=== PATIENT | male | born 1945 | race Caucasian/White ===

== ENCOUNTER 2019-03-12 13:26 | Emergency (ER) | payer MEDICARE, BC ==
--- NOTE | 2019-03-12 14:06 | EDM.PDOC ---
ED HPI GENERAL MEDICAL PROBLEM - General Chief Complaint: Lower Extremity Injury/Pain Stated Complaint: FELL OFF LADDER Time Seen by Provider: 03/12/19 14:05 Source of Information: Reports: Patient History Limitations: Reports: No Limitations - History of Present Illness INITIAL COMMENTS - FREE TEXT/NARRATIVE: pt [place] on [place] and he fell and landed on hisrt heel. He is not able to wt bear on the heel. Onset: Today, Sudden Duration: Hour(s): Location: Reports: Lower Extremity, Right Associated Symptoms: Reports: No Other Symptoms - Related Data Allergies Allergy/AdvReac Type Severity Reaction Status Date / Time chloraprep Allergy Rash Uncoded 04/23/13 14:40 Home Meds: Home Meds Aspirin [Adult Low Dose Aspirin EC] 81 mg PO DAILY 04/23/13 [History] Metoprolol Tartrate 50 mg PO DAILY 04/23/13 [History] [place]-3 Fatty Acids [[place]-3] 1,000 mg PO DAILY 04/23/13 [History] Pantoprazole [Protonix] 40 mg PO DAILY 04/23/13 [History] Simvastatin 20 mg PO DAILY 04/23/13 [History] allopurinoL [Allopurinol] 300 mg PO DAILY 04/23/13 [History] Past Medical History HEENT History: Reports: Cataract Respiratory History: Reports: Sleep Apnea Gastrointestinal History: Reports: Colon Polyp Genitourinary History: Reports: Prostate Disorder Other Genitourinary History: prostate CA Musculoskeletal History: Reports: Gout Psychiatric History: Reports: None Hematologic History: Reports: None Oncologic (Cancer) History: Reports: Prostate - Past Surgical History HEENT Surgical History: Reports: Cataract Surgery, Tonsillectomy GI Surgical History: Reports: Colonoscopy, EGD, Hernia, Inguinal Male Surgical History: Reports: Prostatectomy Endocrine Surgical History: Reports: None Neurological Surgical History: Reports: None Musculoskeletal Surgical History: Reports: None Oncologic Surgical History: Reports: None Dermatological Surgical History: Reports: None Social & Family History - Tobacco Use Smoking Status *Q: Never Smoker Second Hand Smoke Exposure: No - Caffeine Use Caffeine Use: Reports: Coffee, Soda, Tea - Recreational Drug Use Recreational Drug Use: No Review of Systems - Review of Systems Review Of Systems: See Below Constitutional: Reports: No Symptoms Eyes: Reports: No Symptoms Ears: Reports: No Symptoms Nose: Reports: No Symptoms Mouth/Throat: Reports: No Symptoms Respiratory: Reports: No Symptoms Cardiovascular: Reports: No Symptoms GI/Abdominal: Reports: No Symptoms Genitourinary: Reports: No Symptoms Musculoskeletal: Reports: Other (pain in rt heel.) ED EXAM, GENERAL - Physical Exam Exam: See Below Free Text/Narrative:: pt arrived with rt heel pain He fell about 4 feet off of the ladder. Exam Limited By: No Limitations General Appearance: Alert, Anxious, Mild Distress Ears: Normal TMs Nose: Normal Inspection Throat/Mouth: Normal Inspection Head: Atraumatic Neck: Normal Inspection Respiratory/Chest: No Respiratory Distress Cardiovascular: Regular Rate, Rhythm Extremities: Other (pt has swelling and severe pain in rt heel. ) Course - Vital Signs Last Recorded V/S: Last Vital Signs Temp 35.3 C 03/12/19 14:09 Pulse 64 03/12/19 14:09 Resp 20 03/12/19 14:09 BP 113/94 H 03/12/19 14:09 Pulse Ox 98 03/12/19 14:09 - Re-Assessments/Exams Free Text/Narrative Re-Assessment/Exam: 03/12/19 17:20 plain films did reveal a possible but not definitive fracture. A cat scan was obtained which showed a commuited fracture of the rt calcaneous. Departure - Departure Time of Disposition: 17:09 Disposition: Home, Self-Care 01 Condition: Fair Clinical Impression: Fracture, calcaneus closed - Discharge Information Instructions: Cast or Splint Care, Adult Referrals: Yaya Mac MD [Primary Care Provider] - Forms: ED Department Discharge Care Plan Goals: crutches, no wt bearing, appt with Dr Lind tomorrow. Elevat, cool pack to the heel, norco 5/325 q6h prn for severe pain. Sepsis Event Note - Focused Exam Vital Signs: Vital Signs Temp Pulse Resp BP Pulse Ox 03/12/19 14:09 35.3 C 64 20 113/94 H 98 Date Exam was Performed: 03/12/19 Time Exam was Performed: 17:14
--- NOTE | 2019-03-12 15:08 | CRLCR ---
Indication: Injury. Heel pain Technique: Two views of the right calcaneus Comparison: None available Findings/Impression: Bones: A linear ossific density along the medial aspect of the distal calcaneus concerning for a fracture fragment, with a tiny cortical lucency more posteriorly. Few curvilinear lucencies within the calcaneus do not clearly extend to the overlying cortices. If indicated, correlate with CT. No dislocation. A posterior calcaneal enthesophyte. Joint spaces: Unremarkable. Soft tissues: Possible small fluid in the retrocalcaneal bursa. Dictated by Enrique Olivier MD @ 03/12/2019 3:05:30 PM Dictated by: Enrique Olivier MD @ 03/12/2019 15:05:36 (Electronically Signed)
--- NOTE | 2019-03-12 15:10 | CRLCR ---
Indication: Injury. Pain Technique: Three views of the right ankle Comparison: None available Findings/Impression: Bones: Curvilinear lucencies within the calcaneal body could represent nondisplaced fractures, however not clearly extending to the overlying cortices. If indicated, correlate with CT. No dislocation. Joint spaces: Unremarkable. Soft tissues: Mild lateral soft tissue swelling. Dictated by Enrique Olivier MD @ 03/12/2019 3:07:51 PM Dictated by: Enrique Olivier MD @ 03/12/2019 15:07:58 (Electronically Signed)
--- NOTE | 2019-03-12 16:53 | CRLCT ---
Indication: Heel pain. Possible calcaneal fracture calcaneal films. Comparison : Plain films of the calcaneus and ankle from today. Technique : Noncontrast CT examination of the ankle and foot is performed using spiral technique. 1 millimeter thick sagittal, axial, and coronal images are obtained. Please note that all CT scans at this facility use dose modulation, iterative reconstruction, and/or weight-based dosing when appropriate to reduce radiation dose to as low as reasonably achievable. Findings: There is an extensive, comminuted, crush fracture of the calcaneus with flattening of Boehler`s angle to 17 degrees. Multiple vertical and oblique fracture lines are seen passing through the body and anterior portion of the calcaneus, involving the posterior subtalar joint, but sparing the anterior subtalar joint and sustentaculum nya. Interestingly, these fracture lines are not evident even in retrospect on the previous plain films. There is no sign of additional fracture elsewhere in the ankle or foot. The ankle mortise is intact, with no sign of fracture of the talus. There is evidence of previous soft tissue injury involving the lateral malleolus. There is no sign of any fractures of the tarsal bones or of the forefoot. 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 Moderate hammertoe deformities of all of the toes. Small posterior calcaneal spur. Moderate soft tissue swelling of the anterior lateral ankle with mild ankle joint effusion. Impression: Extensive, comminuted, crush fracture of the mid and anterior calcaneus, involving the posterior subtalar articulations and resulting and moderate flattening of Boehler`s angle. Moderate medial ankle soft tissue swelling and mild ankle joint effusion, without fracture of the ankle itself. No sign of any additional fracture elsewhere in the foot. Please note that all CT scans at this facility use dose modulation, iterative reconstruction, and/or weight-based dosing when appropriate to reduce radiation dose to as low as reasonably achievable. Dictated by Raza Dubose MD @ Mar 12 2019 4:39PM Signed by Dr. Raza Dubose @ Mar 12 2019 4:52PM
== END 2019-03-12 17:43 | disposition home or self-care (01) ==
LOC: JP.ED 13:26
DX: S92.021A Displaced fracture of anterior process of right calcaneus, initial encounter for closed fracture (principal); S92.014A Nondisplaced fracture of body of right calcaneus, initial encounter for closed fracture; M10.9 Gout, unspecified; Z88.8 Allergy status to other drugs, medicaments and biological substances; Z79.82 Long term (current) use of aspirin; Z79.899 Other long term (current) drug therapy; Z91.048 Other nonmedicinal substance allergy status; W11.XXXA Fall on and from ladder, initial encounter
CPT/HCPCS: 73610-RT; 73650-RT; 73700-RT; 99283-25

== ENCOUNTER 2019-10-29 19:17 | Emergency (ER) | payer MEDICARE ==
--- NOTE | 2019-10-29 20:32 | EDM.PDOC ---
ED HPI GENERAL MEDICAL PROBLEM - General Chief Complaint: General Stated Complaint: WEAKNESS Time Seen by Provider: 10/29/19 20:18 Source of Information: Reports: Patient, Family, RN, RN Notes Reviewed, Significant Other History Limitations: Reports: No Limitations - History of Present Illness INITIAL COMMENTS - FREE TEXT/NARRATIVE: Pt here via private vehicle with spouse with 2 days progressive weakness in BLLE. Pt did feel weak yesterday while out in [place] and again today at supper. Did have a drink yesterday and again with supper. Did have a pre-syncopal event and slid self to floor after feeling weak., Pt has a remote heart history. Denies fever, night sweats, n/v, or exposure to sick people or recent travel. Denies pain in any extremity. Pt is lying on bed in no acute distress and able to answer questions appropriately in full sentences. Spouse is bedside. Onset: Today Onset Date: 10/29/19 Onset Time: 17:00 Duration: Hour(s): Location: Reports: Lower Extremity, Left (Weakness), Lower Extremity, Right Severity: Moderate - Related Data Allergies Allergy/AdvReac Type Severity Reaction Status Date / Time chloraprep Allergy Rash Uncoded 10/29/19 19:48 Home Meds: Home Meds Aspirin [Adult Low Dose Aspirin EC] 2 tab PO BEDTIME 04/23/13 [History] Metoprolol Tartrate 50 mg PO BID 04/23/13 [History] [place]-3 Fatty Acids [[place]-3] 1,000 mg PO DAILY 04/23/13 [History] Pantoprazole [Protonix] 40 mg PO DAILY 04/23/13 [History] Simvastatin 20 mg PO DAILY 04/23/13 [History] allopurinoL [Allopurinol] 300 mg PO DAILY 04/23/13 [History] Rosuvastatin Calcium 10 mg PO DAILY 10/29/19 [History] Past Medical History HEENT History: Reports: Cataract, Impaired Vision Cardiovascular History: Reports: None, Arrhythmia, CAD, High Cholesterol, Hypertension Respiratory History: Reports: Sleep Apnea Gastrointestinal History: Reports: Colon Polyp, GERD Genitourinary History: Reports: Prostate Disorder Other Genitourinary History: prostate CA Musculoskeletal History: Reports: Fracture, Gout, Neck Pain, Chronic, Other (See Below) Other Musculoskeletal History: right heel FX 03/12/19 Neurological History: Reports: None Psychiatric History: Reports: None Endocrine/Metabolic History: Reports: None Hematologic History: Reports: None Immunologic History: Reports: None Oncologic (Cancer) History: Reports: Prostate Dermatologic History: Reports: None - Infectious Disease History Infectious Disease History: Reports: Chicken Pox, Measles, Mumps, Scarlet Fever - Past Surgical History Head Surgeries/Procedures: Reports: None HEENT Surgical History: Reports: Adenoidectomy, Cataract Surgery, Tonsillectomy GI Surgical History: Reports: Colonoscopy, EGD, Hernia, Inguinal, Polypectomy Male Surgical History: Reports: Prostatectomy Endocrine Surgical History: Reports: None Neurological Surgical History: Reports: None Musculoskeletal Surgical History: Reports: Carpal Tunnel Oncologic Surgical History: Reports: None Dermatological Surgical History: Reports: None Social & Family History - Tobacco Use Smoking Status *Q: Never Smoker - Caffeine Use Caffeine Use: Reports: Coffee - Alcohol Use Days Per Week of Alcohol Use: 7 Number of Drinks Per Day: 1 Total Drinks Per Week: 7 - Recreational Drug Use Recreational Drug Use: No ED ROS GENERAL - Review of Systems Review Of Systems: See Below Constitutional: Reports: No Symptoms HEENT: Reports: No Symptoms Respiratory: Reports: No Symptoms Cardiovascular: Reports: No Symptoms Endocrine: Reports: No Symptoms GI/Abdominal: Reports: No Symptoms : Reports: No Symptoms Musculoskeletal: Reports: Other (BLLE weakness) Skin: Reports: No Symptoms Neurological: Reports: Weakness Psychiatric: Reports: No Symptoms Hematologic/Lymphatic: Reports: No Symptoms Immunologic: Reports: No Symptoms ED EXAM, GENERAL - Physical Exam Exam: See Below Exam Limited By: No Limitations General Appearance: Alert, WD/WN, No Apparent Distress Eye Exam: Bilateral Eye: PERRL Head: Normocephalic Neck: Normal Inspection, Supple Respiratory/Chest: No Respiratory Distress, Lungs Clear, Normal Breath Sounds Cardiovascular: Normal Peripheral Pulses, Regular Rate, Rhythm, No Edema Peripheral Pulses: 2+: Radial (L), Radial (R), Dorsalis Pedis (L), Dorsalis Ped is (R) GI/Abdominal: Normal Bowel Sounds, Soft, Non-Tender (Male) Exam: No Hernia, Deferred Rectal (Males) Exam: Deferred Extremities: Normal Capillary Refill Neurological: Alert, Oriented, CN II-XII Intact, Normal Cognition Psychiatric: Normal Affect, Normal Mood Skin Exam: Warm, Dry, Intact Lymphatic: No Adenopathy Course - Vital Signs Last Recorded V/S: Last Vital Signs Temp 35.8 C L 10/29/19 19:52 Pulse 70 10/29/19 19:52 Resp 16 10/29/19 19:52 BP 146/82 H 10/29/19 19:52 Pulse Ox 97 10/29/19 19:52 - Orders/Labs/Meds Orders: Active Orders 24 hr Category Date Time Status EKG Documentation Completion [RC] ASDIRECTED Care 10/29/19 20:25 Active Peripheral IV Care [RC] . DIRECTED Care 10/29/19 20:37 Active Chest 2V [CR] Stat Exams 10/29/19 20:25 Taken Sodium Chloride 0.9% [Saline Flush] Med 10/29/19 20:37 Active 10 ml FLUSH ASDIRECTED PRN Peripheral IV Insertion Adult [OM.PC] Routine Oth 10/29/19 20:37 Ordered EKG 12 Lead [EK] Routine Ther 10/29/19 20:25 Ordered Medication Orders Sodium Chloride (Saline Flush) 10 ml FLUSH ASDIRECTED PRN PRN Reason: Keep Vein Open Last Admin: 10/29/19 20:58 Dose: 10 ml Documented by: JAMAAL Labs: Laboratory Tests 10/29/19 10/29/19 10/29/19 Range/Units 20:36 20:39 20:39 WBC 7.2 (4.5-11.0) K/uL RBC 4.79 (4.30-5.90) M/uL Hgb 14.2 (12.0-15.0) g/dL Hct 44.8 (40.0-54.0) % MCV 94 (80-98) fL MCH 30 (27-31) pg MCHC 32 (32-36) % Plt Count 206 (150-400) K/uL Neut % (Auto) 67 H (36-66) % Lymph % (Auto) 16 L (24-44) % [place] % (Auto) 11 H (2-6) % Eos % (Auto) 5 H (2-4) % Baso % (Auto) 1 (0-1) % Sodium (140-148) mmol/L Potassium (3.6-5.2) mmol/L Chloride (100-108) mmol/L Carbon Dioxide (21-32) mmol/L Anion Gap (5.0-14.0) mmol/L BUN (7-18) mg/dL Creatinine (0.8-1.3) mg/dL Est Cr Clr Drug Dosing mL/min Estimated GFR (MDRD) (>60) Glucose (74-106) mg/dL POC Glucose 138 H (74-106) MG/DL Calcium (8.5-10.1) mg/dL Total Bilirubin (0.2-1.0) mg/dL AST (15-37) U/L ALT (12-78) U/L Alkaline Phosphatase (46-116) U/L Troponin I (0.000-0.056) ng/mL Total Protein (6.4-8.2) g/dL Albumin (3.4-5.0) g/dL Globulin (2.3-3.5) g/dL Albumin/Globulin Ratio (1.2-2.2) Urine Color Yellow (YELLOW) Urine Appearance Clear (CLEAR) Urine pH 5.5 (5.0-8.0) Ur Specific [place] >= 1.030 (1.008-1.030) Urine Protein Negative (NEGATIVE) mg/dL Urine Glucose (UA) Negative (NEGATIVE) mg/dL Urine Ketones Negative (NEGATIVE) mg/dL Urine Occult Blood Trace-intact H (NEGATIVE) Urine Nitrite Negative (NEGATIVE) Urine Bilirubin Negative (NEGATIVE) Urine Urobilinogen 0.2 (0.2-1.0) EU/dL Ur Leukocyte Esterase Negative (NEGATIVE) 10/29/19 Range/Units 20:39 WBC (4.5-11.0) K/uL RBC (4.30-5.90) M/uL Hgb (12.0-15.0) g/dL Hct (40.0-54.0) % MCV (80-98) fL MCH (27-31) pg MCHC (32-36) % Plt Count (150-400) K/uL Neut % (Auto) (36-66) % Lymph % (Auto) (24-44) % [place] % (Auto) (2-6) % Eos % (Auto) (2-4) % Baso % (Auto) (0-1) % Sodium 143 (140-148) mmol/L Potassium 4.3 (3.6-5.2) mmol/L Chloride 108 (100-108) mmol/L Carbon Dioxide 24 (21-32) mmol/L Anion Gap 11.1 (5.0-14.0) mmol/L BUN 23 H (7-18) mg/dL Creatinine 1.5 H (0.8-1.3) mg/dL Est Cr Clr Drug Dosing 43.86 mL/min Estimated GFR (MDRD) 46 L (>60) Glucose 143 H (74-106) mg/dL POC Glucose (74-106) MG/DL Calcium 8.9 (8.5-10.1) mg/dL Total Bilirubin 0.4 (0.2-1.0) mg/dL AST 25 (15-37) U/L ALT 30 (12-78) U/L Alkaline Phosphatase 72 (46-116) U/L Troponin I < 0.017 (0.000-0.056) ng/mL Total Protein 6.5 (6.4-8.2) g/dL Albumin 3.5 (3.4-5.0) g/dL Globulin 3.0 (2.3-3.5) g/dL Albumin/Globulin Ratio 1.2 (1.2-2.2) Urine Color (YELLOW) Urine Appearance (CLEAR) Urine pH (5.0-8.0) Ur Specific [place] (1.008-1.030) Urine Protein (NEGATIVE) mg/dL Urine Glucose (UA) (NEGATIVE) mg/dL Urine Ketones (NEGATIVE) mg/dL Urine Occult Blood (NEGATIVE) Urine Nitrite (NEGATIVE) Urine Bilirubin (NEGATIVE) Urine Urobilinogen (0.2-1.0) EU/dL Ur Leukocyte Esterase (NEGATIVE) Meds: Medications Generic Name Dose Route Start Last Admin Trade Name Freq PRN Reason Stop Dose Admin Sodium Chloride 10 ml 10/29/19 20:37 10/29/19 20:58 Saline Flush FLUSH 10 ml ASDIRECTED PRN Administration Keep Vein Open Discontinued Medications Generic Name Dose Route Start Last Admin Trade Name Freq PRN Reason Stop Dose Admin Sodium Chloride 1,000 mls @ 999 mls/hr 10/29/19 20:36 10/29/19 20:56 Normal Saline IV 10/29/19 21:36 999 mls/hr .BOLUS ONE Administration - Re-Assessments/Exams Free Text/Narrative Re-Assessment/Exam: 10/29/19 20:35 Examined pt. Labs, diagnostics, and UA Will bolus with NS L 10/29/19 21:52 All labs, diagnostics, and ua negative. Bolus complete. Pt feels much better Departure - Departure Time of Disposition: 21:53 Disposition: DC/Tfer to [id number] Condition: Good Clinical Impression: Weakness generalized, Dehydration - Discharge Information *PRESCRIPTION DRUG MONITORING PROGRAM REVIEWED*: Not Applicable *COPY OF PRESCRIPTION DRUG MONITORING REPORT IN PATIENT NIDIA: Not Applicable Instructions: Weakness, [id number], Dehydration, Adult Referrals: Aj Prakash MD [Primary Care Provider] - Forms: ED Department Discharge Care Plan Goals: Please get plenty of rest. Stay out of the heat. Be sure to drink and eat as tolerated. Your labs, diagnostics, and urine were good. If you feel your symptoms are not improving, please contact your primary provider or seek medical attention as soon as possible. Sepsis Event Note (ED) - Evaluation Sepsis Screening Result: No Definite Risk - Focused Exam Vital Signs: Vital Signs Temp Pulse Resp BP Pulse Ox 10/29/19 19:52 35.8 C L 70 16 146/82 H 97 10/29/19 19:37 35.8 C L 70 16 146/82 H 97 - Problem List & Annotations (1) Weakness generalized SNOMED Code(s): 88776114 Code(s): R53.1 - WEAKNESS Status: Acute Priority: High Current Visit: Yes - Problem List Review Problem List Initiated/Reviewed/Updated: Yes - My Orders Last 24 Hours: My Active Orders 10/29/19 20:25 EKG Documentation Completion [RC] ASDIRECTED Chest 2V [CR] Stat EKG 12 Lead [EK] Routine 10/29/19 20:37 Peripheral IV Care [RC] . DIRECTED Sodium Chloride 0.9% [Saline Flush] 10 ml FLUSH ASDIRECTED PRN Peripheral IV Insertion Adult [OM.PC] Routine - Assessment/Plan Last 24 Hours: My Active Orders 10/29/19 20:25 EKG Documentation Completion [RC] ASDIRECTED Chest 2V [CR] Stat EKG 12 Lead [EK] Routine 10/29/19 20:37 Peripheral IV Care [RC] . DIRECTED Sodium Chloride 0.9% [Saline Flush] 10 ml FLUSH ASDIRECTED PRN Peripheral IV Insertion Adult [OM.PC] Routine Plan: Please get plenty of rest. Stay out of the heat. Be sure to drink and eat as tolerated. Your labs, diagnostics, and urine were good. If you feel your symptoms are not improving, please contact your primary provider or seek medical attention as soon as possible
[2019-10-29] MEDS ORDERED: Sodium Chloride 0.9% 1,000 ML IV ONE (20:36)
[2019-10-29] MEDS ORDERED: Sodium Chloride 0.9% 10 ML Syringe FLUSH PRN (20:37)
--- NOTE | 2019-10-30 09:41 | CR ---
CHEST: 2 view CLINICAL HISTORY:CAD COMPARISON:2011 FINDINGS: The heart size, pulmonary vascularity and hilar structures are normal. No infiltrate effusion or pneumothorax is seen. There are atherosclerotic changes in the aorta. IMPRESSION: No acute cardiopulmonary process.
== END 2019-10-29 22:17 | disposition home or self-care (01) ==
LOC: JP.ED 19:17
DX: E86.0 Dehydration (principal); I10 Essential (primary) hypertension; E78.00 Pure hypercholesterolemia, unspecified; I25.10 Atherosclerotic heart disease of native coronary artery without angina pectoris; M10.9 Gout, unspecified; Z88.8 Allergy status to other drugs, medicaments and biological substances; Z79.899 Other long term (current) drug therapy; Z98.890 Other specified postprocedural states; Z90.49 Acquired absence of other specified parts of digestive tract
CPT/HCPCS: 36415; 71046; 80053; 81003; 82962; 84484; 85025; 93005; 93010; 96360; 99285; J7040; 99283

== ENCOUNTER 2020-06-20 07:03 | Emergency (ER) | payer MEDICARE ==
--- NOTE | 2020-06-20 08:04 | EDM.PDOC ---
ED HPI GENERAL MEDICAL PROBLEM - General Chief Complaint: ENT Problem Stated Complaint: NOSEBLEED, WON'T STOP Time Seen by Provider: 06/20/20 07:33 Source of Information: Reports: Patient, Family ( at bedside) - History of Present Illness INITIAL COMMENTS - FREE TEXT/NARRATIVE: Patient presents to the ER today due to nose bleeding--he states he thinks it started around 0300. He reports that he normally has a runny nose in the morning from wearing his C-PAP but today it was different, then he noted bleeding from right side. He states he is on coumadin (INR-2.3 on Sunday) s/p CVA last fall. He denies any other associated symptoms PMH--CVA, chronic anticoagulation, HTN, HLP, CAD, GERD, gout Meds--rosuvastain, omega 3-FA, NTG, lisinopril, warfarin, metoprolol tartte, pantoprazole, ASA, allopurinol Allergies--chloraprep Tob--denies EtOH--occassional Drugs--denies Onset: Today Onset Date: 06/20/20 Onset Time: 03:00 - Related Data Allergies Allergy/AdvReac Type Severity Reaction Status Date / Time chloraprep Allergy Rash Uncoded 10/29/19 19:48 Home Meds: Home Meds Aspirin [Adult Low Dose Aspirin EC] 2 tab PO BEDTIME 04/23/13 [History] Metoprolol Tartrate 100 mg PO BID 04/23/13 [History] [place]-3 Fatty Acids [[place]-3] 1,000 mg PO DAILY 04/23/13 [History] Pantoprazole [Protonix] 40 mg PO DAILY 04/23/13 [History] allopurinoL [Allopurinol] 300 mg PO DAILY 04/23/13 [History] Rosuvastatin Calcium 10 mg PO DAILY 10/29/19 [History] Nitroglycerin [Nitrostat] 0.4 mg SL ASDIRECTED PRN 11/21/19 [History] Warfarin [Coumadin] 5 mg PO ASDIRECTED 06/20/20 [History] lisinopriL [Lisinopril] 5 mg PO DAILY 06/20/20 [History] Past Medical History HEENT History: Reports: Cataract, Impaired Vision Cardiovascular History: Reports: None, Arrhythmia, CAD, High Cholesterol, Hypert ension Respiratory History: Reports: Sleep Apnea Gastrointestinal History: Reports: Colon Polyp, GERD Genitourinary History: Reports: Prostate Disorder Other Genitourinary History: prostate CA Musculoskeletal History: Reports: Fracture, Gout, Neck Pain, Chronic, Other (See Below) Other Musculoskeletal History: right heel FX 03/12/19 Neurological History: Reports: None Psychiatric History: Reports: None Endocrine/Metabolic History: Reports: None, Obesity/BMI 30+ Hematologic History: Reports: None Immunologic History: Reports: None Oncologic (Cancer) History: Reports: Prostate Dermatologic History: Reports: None - Infectious Disease History Infectious Disease History: Reports: Chicken Pox, Measles, Mumps, Scarlet Fever - Past Surgical History Head Surgeries/Procedures: Reports: None HEENT Surgical History: Reports: Adenoidectomy, Cataract Surgery, Tonsillectomy GI Surgical History: Reports: Colonoscopy, EGD, Hernia, Inguinal, Polypectomy Male Surgical History: Reports: Prostatectomy Endocrine Surgical History: Reports: None Neurological Surgical History: Reports: None Musculoskeletal Surgical History: Reports: Carpal Tunnel Oncologic Surgical History: Reports: None Dermatological Surgical History: Reports: None Social & Family History - Family History Family Medical History: No Pertinent Family History - Tobacco Use Tobacco Use Status *Q: Never Tobacco User Second Hand Smoke Exposure: No - Caffeine Use Caffeine Use: Reports: Coffee - Recreational Drug Use Recreational Drug Use: No ED ROS ENT - Review of Systems Review Of Systems: See Below Constitutional: Reports: No Symptoms HEENT: Reports: Nosebleed Respiratory: Reports: No Symptoms Cardiovascular: Reports: No Symptoms Endocrine: Reports: No Symptoms GI/Abdominal: Reports: No Symptoms : Reports: No Symptoms Musculoskeletal: Reports: No Symptoms Skin: Reports: No Symptoms Neurological: Reports: No Symptoms Psychiatric: Reports: No Symptoms Hematologic/Lymphatic: Reports: No Symptoms Immunologic: Reports: No Symptoms ED EXAM, ENT - Physical Exam Exam: See Below Exam Limited By: No Limitations General Appearance: Alert, WD/WN, No Apparent Distress Eye Exam: Bilateral Eye: EOMI, Normal Inspection, PERRL Ears: Normal External Exam Nose: Active Bleeding (anterior nose bleed from right nare, when nasal clamp placed he did have some bleeding/drainage from left side; spitting up what he swallows/drains posterior) Mouth/Throat: Normal Inspection (moist mucous membranes) Head: Atraumatic, Normocephalic Neck: Normal Inspection, Supple, Full Range of Motion Respiratory/Chest: No Respiratory Distress, Lungs Clear, Normal Breath Sounds, No Accessory Muscle Use Cardiovascular: Normal Peripheral Pulses, Regular Rate, Rhythm, No Edema, No Murmur GI/Abdominal: Normal Bowel Sounds, Soft, Non-Tender Rectal (Males) Exam: Deferred Back: Normal Inspection Extremities: Normal Inspection, No Pedal Edema, Normal Capillary Refill Neurological: Alert, Oriented, Normal Cognition, No Motor/Sensory Deficits Psychiatric: Normal Affect, Normal Mood Skin: Warm, Dry, Intact, Normal Color ED ENT PROCEDURES - Epistaxis Procedure Indication: Epistaxis, Uncontrolled Recent anticoagulants/antiplatlets: Yes Uncontrolled HTN: No Recent septal/nasal surgery: No Site of bleeding: Right Nare Topical Meds: Other (TXA) Ice pack to area: Yes Anterior Packing: Inflatable Nasal Tampon (with TXA to bilateral nares; appears after about 2-3 minutes to have stemmed bleeding--will continue to monitor) Complications: No Course - Vital Signs Text/Narrative:: 0850--no further bleeding noted at this time; will leave nasal/rhinorockets in place and have patient f/u with ENT. it was discussed that he should return to the ER if further nose bleed concerns today/tonight. they verbalized understanding/agreement with plan of care Last Recorded V/S: Last Vital Signs Temp 97.8 F 06/20/20 07:39 Pulse 69 06/20/20 07:39 Resp 16 06/20/20 07:39 BP 140/67 06/20/20 07:39 Pulse Ox 97 06/20/20 07:39 - Orders/Labs/Meds Meds: Medications Discontinued Medications Generic Name Dose Route Start Last Admin Trade Name Freq PRN Reason Stop Dose Admin Tranexamic Acid 500 mg 06/20/20 07:33 06/20/20 07:55 Tranexamic Acid 1,000 Mg/10 Ml Amp TOP 06/20/20 07:34 500 mg ONETIME ONE Administration Departure - Departure Time of Disposition: 08:52 Disposition: Home, Self-Care 01 Condition: Good Clinical Impression: Epistaxis, Chronic anticoagulation - Discharge Information *PRESCRIPTION DRUG MONITORING PROGRAM REVIEWED*: Not Applicable *COPY OF PRESCRIPTION DRUG MONITORING REPORT IN PATIENT NIDIA: Not Applicable Instructions: Nosebleed, [id number] Referrals: Nygard,Luis D, MD [Primary Care Provider] - Forms: ED Department Discharge Additional Instructions: Keep nasal packing in place Contact your primary care provider/family doctor for referral to ENT--as I do not know if your insurance will take my ER referral--I will provide information regarding ENT for follow up but you must contact them for ER follow up care Dr Yani Chi or Dr Yaya Iyer, ENT @ [facility] in [facility] [address] [facility] Do not remove nasal packing, do not blow your nose, hold your coumadin & aspirin today--further direction as per ENT on Sunday Return to the ER if further problems or concerns Sepsis Event Note (ED) - Evaluation Sepsis Screening Result: No Definite Risk - Focused Exam Vital Signs: Vital Signs Temp Pulse Resp BP Pulse Ox 06/20/20 07:39 97.8 F 69 16 140/67 97
== END 2020-06-20 10:15 | disposition home or self-care (01) ==
LOC: JP.ED 07:03
DX: R04.0 Epistaxis (principal); I25.10 Atherosclerotic heart disease of native coronary artery without angina pectoris; E78.00 Pure hypercholesterolemia, unspecified; I10 Essential (primary) hypertension; K21.9 Gastro-esophageal reflux disease without esophagitis; M10.9 Gout, unspecified; E66.9 Obesity, unspecified; Z68.43 Body mass index [BMI] 50.0-59.9, adult; Z79.01 Long term (current) use of anticoagulants; Z79.82 Long term (current) use of aspirin; Z79.899 Other long term (current) drug therapy
CPT/HCPCS: 30901; 30903; 99283; 99283-25

== ENCOUNTER 2020-07-13 06:07 | Day surgery (SDC) | payer MEDICARE ==
[2020-07-13] MEDS ORDERED: Propofol 200 MG/20 ML SDV ONE (06:59)
[2020-07-13] MEDS ORDERED: Midazolam 1 MG/ML 2 ML SDV ONE (06:59)
[2020-07-13] MEDS ORDERED: fentaNYL 100 MCG/2 ML SDV ONE (06:59)
[2020-07-13] MEDS: Sodium Chloride 0.9% 1,000 ML IV SCH (07:19)
--- NOTE | 2020-07-13 12:33 | OR ---
DATE OF PROCEDURE: 07/13/2020 SURGEON: Hernan Dunham MD PROCEDURE: Colonoscopy. FINDINGS: 1. Ascending colon polyp, approximately 1 cm, completely removed using hot snare wire device. 2. Ascending polyp, sessile, approximately 1 cm, completely removed using hot snare wire device. 3. Ascending colon polyp #3, approximately 1 cm, sessile, completely removed using hot snare wire device. 4. Ascending colon polyp #4, approximately 1 cm, sessile, completely removed using hot snare wire device. 5. Transverse colon polyp #1, approximately 1 cm, completely removed using hot snare wire device, sessile. 6. Transverse #2, approximately 1 cm, sessile, completely removed using hot snare wire device. 7. Rectal polyp, polypoid, approximately 5 mm, completely removed using hot snare wire device. 8. Diverticulosis, mild, limited to sigmoid colon mostly with no evidence of diverticulitis or bleeding. COMPLICATIONS: None. ESTHETICIAN MAKEUP ARTIST: None. PREOPERATIVE DIAGNOSIS: Screening colonoscopy. POSTOPERATIVE DIAGNOSIS: Screening colonoscopy. RISKS: Risks, benefits, alternatives, and limitations including but not limited to infection, bleeding, perforation, and false positives and false negatives were explained to the patient who wished to proceed. PROCEDURE IN DETAIL: The patient was placed in left lateral decubitus position. Digital rectal exam was performed, showed mild external hemorrhoids. The scope was introduced and advanced atraumatically to the ileocecal valve. A photo was taken of the appendiceal orifice. The scope was brought back to the ascending, transverse, descending colon, and retroflexed. The aforementioned polyps were all identified and completely removed. No abnormal bleeding was noted after removal. The rectal polyp was identified and also removed. No abnormalities on retroflexion. The diverticulosis would be described as mild, limited to sigmoid colon without evidence of diverticulitis or bleeding. The prep was acceptable. Approximately 95% of luminal surface could be seen. Greater than 8 minutes was spent removing the scope. The patient tolerated the procedure well. Hernan Dunham MD /[id number]
== END 2020-07-13 09:46 | disposition home or self-care (01) ==
LOC: JP.SDS 06:07
PROVIDERS: ATTEND Surgery
DX: Z12.11 Encounter for screening for malignant neoplasm of colon (principal); D12.2 Benign neoplasm of ascending colon; D12.3 Benign neoplasm of transverse colon; D12.8 Benign neoplasm of rectum; K57.30 Diverticulosis of large intestine without perforation or abscess without bleeding; K64.4 Residual hemorrhoidal skin tags; I25.10 Atherosclerotic heart disease of native coronary artery without angina pectoris; Z88.8 Allergy status to other drugs, medicaments and biological substances; Z86.73 Personal history of transient ischemic attack (TIA), and cerebral infarction without residual deficits
CPT/HCPCS: 45385; 88305; J2250; J2704; J3010; J7030

== ENCOUNTER → 2021-04-11 | Day surgery (SDC) | payer MEDICARE ==
[~2021-04-11] MED LIST: Acetaminophen/HYDROcodone 325-5 MG Tab PO ONE; Dexamethasone 4 MG/ML SDV ONE; Glycopyrrolate 0.2 MG/ML 5 ML MDV ONE; Lactated Ringers 1,000 ML IV SCH; Neostigmine Methylsulfate 1 MG/ML 5 ML Syringe ONE; Nozin Nasal Sanitizer NASBOTH ONE; Ondansetron 4 MG/2 ML SDV IVPUSH ONE; Ondansetron 4 MG/2 ML SDV ONE; Propofol 200 MG/20 ML SDV ONE; Rocuronium 50 MG/5 ML Vial ONE; Succinylcholine 200 MG/10 ML MDV ONE; ceFAZolin 1 GM in Premix Bag 1 BAG IV ONE; fentaNYL 250 MCG/5 ML SDV ONE
[2021-04-11] MEDS: Bupivacaine 0.5% 50 ML MDV ONE ×3 (08:49→10:30)
== END ==
LOC: JP.SDS 06:37
PROVIDERS: ATTEND Specialist
DX: M19.121 Post-traumatic osteoarthritis, right elbow (principal); M24.021 Loose body in right elbow; F41.1 Generalized anxiety disorder; I10 Essential (primary) hypertension; G47.33 Obstructive sleep apnea (adult) (pediatric); K21.9 Gastro-esophageal reflux disease without esophagitis; Z87.891 Personal history of nicotine dependence; Z88.8 Allergy status to other drugs, medicaments and biological substances
CPT/HCPCS: 29834; 29835; 29837; 36415; 80053; 85027; 93005; A9270; C1713; J0330; J0690; J1100; J2405; J2704; J2710; J3010; J3490; J7120

== ENCOUNTER 2021-04-17 07:49 | Emergency (ER) | payer MEDICARE | END 2021-04-17 10:01 | disposition home or self-care (01) | LOC: JP.ED 07:49 | DX: M96.830 Postprocedural hemorrhage of a musculoskeletal structure following a musculoskeletal system procedure (principal); S50.01XA Contusion of right elbow, initial encounter; L30.9 Dermatitis, unspecified; K21.9 Gastro-esophageal reflux disease without esophagitis; E66.9 Obesity, unspecified; Z68.34 Body mass index [BMI] 34.0-34.9, adult; Z86.73 Personal history of transient ischemic attack (TIA), and cerebral infarction without residual deficits; Z79.82 Long term (current) use of aspirin; Z79.899 Other long term (current) drug therapy | CPT/HCPCS: 93971-26; 93971-RT; 99283; 99283-25 ==

== ENCOUNTER 2021-07-28 08:06 | Day surgery (SDC) | payer MEDICARE ==
[~2021-07-28 08:06] MED LIST changes: -Acetaminophen/HYDROcodone 325-5 MG Tab PO ONE; -Dexamethasone 4 MG/ML SDV ONE; -Glycopyrrolate 0.2 MG/ML 5 ML MDV ONE; -Lactated Ringers 1,000 ML IV SCH; +Midazolam 1 MG/ML 2 ML SDV ONE; -Neostigmine Methylsulfate 1 MG/ML 5 ML Syringe ONE; -Nozin Nasal Sanitizer NASBOTH ONE; -Ondansetron 4 MG/2 ML SDV IVPUSH ONE; -Ondansetron 4 MG/2 ML SDV ONE; -Rocuronium 50 MG/5 ML Vial ONE; -Succinylcholine 200 MG/10 ML MDV ONE; -ceFAZolin 1 GM in Premix Bag 1 BAG IV ONE; +fentaNYL 100 MCG/2 ML SDV ONE; -fentaNYL 250 MCG/5 ML SDV ONE
[2021-07-28] MEDS ORDERED: Sodium Chloride 0.9% 1,000 ML IV SCH (09:00)
== END 2021-07-28 11:40 | disposition home or self-care (01) ==
LOC: JP.SDS 08:06
PROVIDERS: ATTEND Surgery
DX: Z12.11 Encounter for screening for malignant neoplasm of colon (principal); D12.3 Benign neoplasm of transverse colon; K57.30 Diverticulosis of large intestine without perforation or abscess without bleeding; K56.2 Volvulus; I10 Essential (primary) hypertension; Z86.73 Personal history of transient ischemic attack (TIA), and cerebral infarction without residual deficits; Z86.010 Personal history of colon polyps
CPT/HCPCS: 45380; 45385; J2250; J2704; J3010; J7030; 88305

== ENCOUNTER 2022-09-26 03:51 | Emergency (ER) | payer MEDICARE | END 2022-09-26 04:45 | disposition home or self-care (01) | LOC: JP.ED 03:51 | DX: S30.860A Insect bite (nonvenomous) of lower back and pelvis, initial encounter (principal); K21.9 Gastro-esophageal reflux disease without esophagitis; E66.9 Obesity, unspecified; Z68.33 Body mass index [BMI] 33.0-33.9, adult; Z88.5 Allergy status to narcotic agent; Z79.82 Long term (current) use of aspirin; Z79.899 Other long term (current) drug therapy; Z86.73 Personal history of transient ischemic attack (TIA), and cerebral infarction without residual deficits; W57.XXXA Bitten or stung by nonvenomous insect and other nonvenomous arthropods, initial encounter | CPT/HCPCS: 99281 ==

== ENCOUNTER 2023-07-03 11:35 | Emergency (ER) | payer MEDICARE | END 2023-07-03 14:37 | disposition home or self-care (01) | LOC: JP.ED 11:35 | DX: I10 Essential (primary) hypertension (principal); E78.00 Pure hypercholesterolemia, unspecified; I25.10 Atherosclerotic heart disease of native coronary artery without angina pectoris; K21.9 Gastro-esophageal reflux disease without esophagitis; Z86.16 Personal history of COVID-19; Z91.041 Radiographic dye allergy status; Z88.8 Allergy status to other drugs, medicaments and biological substances; Z95.1 Presence of aortocoronary bypass graft; Z79.899 Other long term (current) drug therapy; Z79.01 Long term (current) use of anticoagulants; Z86.73 Personal history of transient ischemic attack (TIA), and cerebral infarction without residual deficits | CPT/HCPCS: 99283 ==

== ENCOUNTER 2023-07-22 09:34 | Emergency (ER) | payer MEDICARE ==
[2023-07-22 10:13] LABS: BASOPHILS ABSOLUTE AUTO 0.05 K/uL (0.00-0.10); BASOPHILS PERCENT AUTO 0.7 % (0.1-1.3); EOSINOPHILS ABSOLUTE AUTO 0.25 K/uL (0.00-0.40); EOSINOPHILS PERCENT AUTO 3.4 % (0.0-5.4); HEMATOCRIT 43.8 % (38.4-49.7); HEMOGLOBIN 14.2 g/dL (12.9-16.9); IMMATURE GRAN PERCENT AUTO 0.1 % (0.0-0.7); LYMPHOCYTES ABSOLUTE AUTO 1.37 K/uL (0.8-3.3); LYMPHOCYTES PERCENT AUTO 18.8 % (11.4-47.7); MEAN CORPUSCULAR HEMOGLOBIN 29.6 pg (31.6-35.5); MEAN CORPUSCULAR HGB CONC 32.4 g/dL (31.6-35.5); MEAN CORPUSCULAR VOLUME 91.4 fL (81.4-99.0); MONOCYTES ABSOLUTE AUTO 0.72 K/uL (0.20-0.90); MONOCYTES PERCENT AUTO 9.9 % (3.3-12.6); NEUTROPHILS PERCENT AUTO 67.1 % (40.0-78.1); PLATELET COUNT,PLT 199 K/uL (130-375); RED BLOOD CELL COUNT 4.79 M/uL (4.14-5.76); WHITE BLOOD CELL COUNT,WBC 7.3 K/uL (3.2-11.0)
[2023-07-22 10:15] LABS: IMMATURE GRAN ABSOLUTE AUTO 0.01 K/uL (0.00-0.23)
[2023-07-22 10:33] LABS: PROTHROMBIN TIME 10.2 sec (9.2-10.6); PTT,PARTIAL THROMBOPLSTIN TIME 25.3 sec (21.8-27.3)
[2023-07-22 10:39] LABS: APPEARANCE,URINE SLIGHTLY CLOUDY (CLEAR); BILIRUBIN,URINE SMALL (NEGATIVE); COLOR,URINE YELLOW (YELLOW); GLUCOSE,URINE NEGATIVE (NEGATIVE); KETONES,URINE NEGATIVE (NEGATIVE); LEUKOCYTE ESTERASE,URINE NEGATIVE (NEGATIVE); NITRITE,URINE NEGATIVE (NEGATIVE); OCCULT BLOOD,URINE NEGATIVE (NEGATIVE); PH,URINE 5.5 (5.0-8.0); PROTEIN,URINE 100 mg/dL (NEGATIVE); UROBILINOGEN,URINE 0.2 EU/dL (0.2-1.0)
[2023-07-22 10:44] LABS: ALANINE AMINOTRANSFERASE,ALT 24 U/L (12-78); ALBUMIN 3.3 g/dL (3.4-5.0); ALKALINE PHOSPHATASE 126 U/L (46-116); ASPARTATE AMNIOTRANSFERASE,AST 19 U/L (15-37); BILIRUBIN TOTAL 0.6 mg/dL (0.2-1.0); BLOOD UREA NITROGEN,BUN 27 mg/dL (7-18); CALCIUM 9.6 mg/dL (8.5-10.1); CARBON DIOXIDE,CO2 26 mmol/L (21-32); CHLORIDE,CL 105 mmol/L (100-108); CREATININE 1.8 mg/dL (0.8-1.3); ESTIMATED GFR 38 mL/min (>60); GLUCOSE RANDOM 124 mg/dL (74-106); MAGNESIUM 1.8 mg/dL (1.8-2.4); PHOSPHORUS 3.5 mg/dL (2.5-4.9); POTASSIUM,K 4.7 mmol/L (3.6-5.2); PROTEIN TOTAL,TP 6.6 g/dL (6.4-8.2); SODIUM,NA 139 mmol/L (140-148); T4 FREE 0.88 ng/dL (0.76-1.46); TROPONIN I HIGH SENSITIVITY 9.9 pg/mL (<=60.3)
[2023-07-22 10:48] LABS: ANION GAP 12.7 mmol/L (5.0-14.0); C-REACTIVE PROTEIN < 0.50 mg/dL (<0.50)
[2023-07-22 10:48] LABS: AMORPHOUS SEDIMENT,URINE MODERATE; BACTERIA,URINE RARE; EPITHELIAL CELLS,URINE MODERATE; MUCUS,URINE MANY; RBC,URINE NOT SEEN (0-5); WBC,URINE 0-5 (0-5)
== END 2023-07-22 13:31 | disposition home or self-care (01) ==
LOC: JP.ED 09:34
DX: I95.1 Orthostatic hypotension (principal); I10 Essential (primary) hypertension; I25.10 Atherosclerotic heart disease of native coronary artery without angina pectoris; I48.91 Unspecified atrial fibrillation; Z91.041 Radiographic dye allergy status; Z88.8 Allergy status to other drugs, medicaments and biological substances; Z79.899 Other long term (current) drug therapy; Z79.01 Long term (current) use of anticoagulants; Z86.73 Personal history of transient ischemic attack (TIA), and cerebral infarction without residual deficits; Z86.16 Personal history of COVID-19; Z95.1 Presence of aortocoronary bypass graft
CPT/HCPCS: 36415; 70450; 71046; 71046-26; 80053; 81001; 82947; 83605; 83735; 83880; 84100; 84439; 84484; 85025; 85610; 85730; 86140; 93005; 99285

== ENCOUNTER 2023-11-20 08:25 | Emergency (ER) | payer MEDICARE ==
[2023-11-20] MEDS: Sodium Chloride 0.9% 1,000 ML IV SCH (09:11)
[2023-11-20 09:20] LABS: BASOPHILS PERCENT AUTO 0.3 % (0.1-1.3); EOSINOPHILS ABSOLUTE AUTO 0.06 K/uL (0.00-0.40); EOSINOPHILS PERCENT AUTO 1.8 % (0.0-5.4); HEMATOCRIT 29.2 % (38.4-49.7); HEMOGLOBIN 9.6 g/dL (12.9-16.9); IMMATURE GRAN ABSOLUTE AUTO 0.04 K/uL (0.00-0.23); IMMATURE GRAN PERCENT AUTO 1.2 % (0.0-0.7); LYMPHOCYTES ABSOLUTE AUTO 0.47 K/uL (0.8-3.3); LYMPHOCYTES PERCENT AUTO 14.2 % (11.4-47.7); MEAN CORPUSCULAR HEMOGLOBIN 29.9 pg (31.6-35.5); MEAN CORPUSCULAR HGB CONC 32.9 g/dL (31.6-35.5); MONOCYTES ABSOLUTE AUTO 0.59 K/uL (0.20-0.90); MONOCYTES PERCENT AUTO 17.8 % (3.3-12.6); NEUTROPHILS ABSOLUTE AUTO 2.14 K/uL (1.0-7.6); NEUTROPHILS PERCENT AUTO 64.7 % (40.0-78.1); PLATELET COUNT,PLT 136 K/uL (130-375); RED BLOOD CELL COUNT 3.21 M/uL (4.14-5.76); WHITE BLOOD CELL COUNT,WBC 3.3 K/uL (3.2-11.0)
[2023-11-20 09:26] LABS: BASOPHILS ABSOLUTE AUTO 0.01 K/uL (0.00-0.10)
[2023-11-20 09:45] LABS: A/G RATIO 0.7 (1.2-2.2); ALANINE AMINOTRANSFERASE,ALT 20 U/L (12-78); ALBUMIN 2.5 g/dL (3.4-5.0); ALKALINE PHOSPHATASE 84 U/L (46-116); ANION GAP 11.9 mmol/L (5.0-14.0); ASPARTATE AMNIOTRANSFERASE,AST 19 U/L (15-37); BILIRUBIN TOTAL 0.4 mg/dL (0.2-1.0); BLOOD UREA NITROGEN,BUN 23 mg/dL (7-18); C-REACTIVE PROTEIN 5.57 mg/dL (<0.50); CALCIUM 8.6 mg/dL (8.5-10.1); CARBON DIOXIDE,CO2 27 mmol/L (21-32); CHLORIDE,CL 101 mmol/L (100-108); CREATININE 1.9 mg/dL (0.8-1.3); EST CRCL DRUG DOSING (CG) 32.56 mL/min; ESTIMATED GFR 36 mL/min (>60); GLUCOSE RANDOM 103 mg/dL (74-106); POTASSIUM,K 4.9 mmol/L (3.6-5.2); PROTEIN TOTAL,TP 6.2 g/dL (6.4-8.2); SODIUM,NA 135 mmol/L (140-148)
[2023-11-20 10:03] LABS: APPEARANCE,URINE CLEAR (CLEAR); BILIRUBIN,URINE NEGATIVE (NEGATIVE); COLOR,URINE YELLOW (YELLOW); GLUCOSE,URINE NEGATIVE (NEGATIVE); KETONES,URINE NEGATIVE (NEGATIVE); LEUKOCYTE ESTERASE,URINE NEGATIVE (NEGATIVE); NITRITE,URINE NEGATIVE (NEGATIVE); OCCULT BLOOD,URINE NEGATIVE (NEGATIVE); PROTEIN,URINE 30 mg/dL (NEGATIVE); UROBILINOGEN,URINE 0.2 EU/dL (0.2-1.0)
[2023-11-20 10:10] LABS: AMORPHOUS SEDIMENT,URINE MANY; BACTERIA,URINE NOT SEEN; EPITHELIAL CELLS,URINE FEW; MUCUS,URINE MODERATE; RBC,URINE 0-5 (0-5); WBC,URINE 0-5 (0-5)
== END 2023-11-20 11:21 | disposition home or self-care (01) ==
LOC: JP.ED 08:25
DX: R53.1 Weakness (principal); I10 Essential (primary) hypertension; I25.10 Atherosclerotic heart disease of native coronary artery without angina pectoris; I48.91 Unspecified atrial fibrillation; E78.00 Pure hypercholesterolemia, unspecified; K21.9 Gastro-esophageal reflux disease without esophagitis; E66.9 Obesity, unspecified; Z86.16 Personal history of COVID-19; Z90.49 Acquired absence of other specified parts of digestive tract; Z95.1 Presence of aortocoronary bypass graft; Z79.01 Long term (current) use of anticoagulants; Z79.899 Other long term (current) drug therapy; Z88.8 Allergy status to other drugs, medicaments and biological substances; Z68.30 Body mass index [BMI] 30.0-30.9, adult
CPT/HCPCS: 36415; 80053; 81001; 83605; 84145; 85025; 86140; 96360; 99285; J7030

== ENCOUNTER 2024-02-11 08:07 | Emergency (ER) | payer MEDICARE ==
[2024-02-11 09:08] LABS: BASE EXCESS VENOUS -1.4 mm/L; BICARBONATE,VENOUS 22.6 mmol/L; CARBOXYHEMOGLOBIN 2.5 % (0.0-1.6); METHEMOGLOBIN 0.9 %; O2 SATURATION VENOUS 60.1; OXYHEMOGLOBIN 58.1 %; PCO2 VENOUS 37.2 mm/Hg; TOTAL HEMOGLOBIN 8.5 g/dL (13.5-18.0)
[2024-02-11 09:09] LABS: PO2 VENOUS 33.5 mm/Hg
[2024-02-11 09:10] LABS: EOSINOPHILS PERCENT AUTO 0.8 % (0.0-5.4); HEMATOCRIT 24.2 % (38.4-49.7); HEMOGLOBIN 8.1 g/dL (12.9-16.9); IMMATURE GRAN PERCENT AUTO 0.8 % (0.0-0.7); LYMPHOCYTES ABSOLUTE AUTO 0.23 K/uL (0.8-3.3); LYMPHOCYTES PERCENT AUTO 18.4 % (11.4-47.7); MEAN CORPUSCULAR HEMOGLOBIN 34.3 pg (31.6-35.5); MEAN CORPUSCULAR HGB CONC 33.5 g/dL (31.6-35.5); MEAN CORPUSCULAR VOLUME 102.5 fL (81.4-99.0); MONOCYTES ABSOLUTE AUTO 0.51 K/uL (0.20-0.90); MONOCYTES PERCENT AUTO 40.8 % (3.3-12.6); NEUTROPHILS ABSOLUTE AUTO 0.49 K/uL (1.0-7.6); NEUTROPHILS PERCENT AUTO 39.2 % (40.0-78.1); PLATELET COUNT,PLT 86 K/uL (130-375); RED BLOOD CELL COUNT 2.36 M/uL (4.14-5.76); WHITE BLOOD CELL COUNT,WBC 1.3 K/uL (3.2-11.0)
[2024-02-11 09:13] LABS: EOSINOPHILS ABSOLUTE AUTO 0.01 K/uL (0.00-0.40); IMMATURE GRAN ABSOLUTE AUTO 0.01 K/uL (0.00-0.23)
[2024-02-11] MEDS: Sodium Chloride 0.9% 500 ML IV ONE ×3 (09:18→11:11)
[2024-02-11 09:19] LABS: APPEARANCE,URINE CLEAR (CLEAR); COLOR,URINE YELLOW (YELLOW); PH,URINE 5.5 (5.0-8.0)
[2024-02-11 09:20] LABS: BILIRUBIN,URINE NEGATIVE (NEGATIVE); GLUCOSE,URINE NEGATIVE (NEGATIVE); KETONES,URINE NEGATIVE (NEGATIVE); LEUKOCYTE ESTERASE,URINE NEGATIVE (NEGATIVE); NITRITE,URINE NEGATIVE (NEGATIVE); OCCULT BLOOD,URINE TRACE-INTACT (NEGATIVE); PROTEIN,URINE 100 mg/dL (NEGATIVE)
[2024-02-11 09:28] LABS: AMORPHOUS SEDIMENT,URINE FEW; BACTERIA,URINE FEW; EPITHELIAL CELLS,URINE FEW; MUCUS,URINE FEW; RBC,URINE 0-5 (0-5); WBC,URINE 0-5 (0-5)
[2024-02-11 09:34] LABS: A/G RATIO 0.7 (1.2-2.2); ALANINE AMINOTRANSFERASE,ALT 60 U/L (12-78); ALBUMIN 2.8 g/dL (3.4-5.0); ALKALINE PHOSPHATASE 79 U/L (46-116); ASPARTATE AMNIOTRANSFERASE,AST 47 U/L (15-37); BILIRUBIN TOTAL 0.7 mg/dL (0.2-1.0); BLOOD UREA NITROGEN,BUN 34 mg/dL (7-18); CALCIUM 9.5 mg/dL (8.5-10.1); CARBON DIOXIDE,CO2 24 mmol/L (21-32); CHLORIDE,CL 100 mmol/L (100-108); CREATININE 2.2 mg/dL (0.8-1.3); EST CRCL DRUG DOSING (CG) 28.12 mL/min; ESTIMATED GFR 30 mL/min (>60); GLUCOSE RANDOM 89 mg/dL (74-106); POTASSIUM,K 4.1 mmol/L (3.6-5.2); PROTEIN TOTAL,TP 6.6 g/dL (6.4-8.2); SODIUM,NA 135 mmol/L (140-148); TROPONIN I HIGH SENSITIVITY 20.2 pg/mL (<=60.3)
[2024-02-11 09:35] LABS: ANION GAP 15.1 mmol/L (5.0-14.0)
[2024-02-11 10:14] LABS: CORONAVIRUS COVID-19 NAA NEGATIVE (NEGATIVE); INFLUENZA A NAA NEGATIVE (NEGATIVE); INFLUENZA B NAA NEGATIVE (NEGATIVE); RESPIRATORY SYNCYTIAL VIR NAA NEGATIVE (NEGATIVE)
[2024-02-11 12:16] LABS: CREATININE 2.1 mg/dL (0.8-1.3); EST CRCL DRUG DOSING (CG) 29.46 mL/min
== END 2024-02-11 13:32 | disposition home or self-care (01) ==
LOC: JP.ED 08:07
DX: E86.0 Dehydration (principal); I10 Essential (primary) hypertension; I25.10 Atherosclerotic heart disease of native coronary artery without angina pectoris; E78.00 Pure hypercholesterolemia, unspecified; I48.91 Unspecified atrial fibrillation; K21.9 Gastro-esophageal reflux disease without esophagitis; E66.9 Obesity, unspecified; Z95.1 Presence of aortocoronary bypass graft; Z90.49 Acquired absence of other specified parts of digestive tract; Z79.899 Other long term (current) drug therapy; Z79.01 Long term (current) use of anticoagulants; Z88.8 Allergy status to other drugs, medicaments and biological substances; Z68.30 Body mass index [BMI] 30.0-30.9, adult
CPT/HCPCS: 0241U; 36415; 71045; 80053; 80307; 81001; 82565; 82803; 83605; 84145; 84484; 85025; 87040; 93005; 93010; 96360; 96361; 99285; J7030; J7040

== ENCOUNTER 2024-11-07 10:35 | Emergency (ER) | payer MEDICARE ==
[2024-11-07 11:57] LABS: PLATELET COUNT,PLT 167 K/uL (130-375); RED BLOOD CELL COUNT 3.26 M/uL (4.14-5.76); WHITE BLOOD CELL COUNT,WBC 4.3 K/uL (3.2-11.0)
[2024-11-07 12:26] LABS: A/G RATIO 0.8 (1.2-2.2); ALANINE AMINOTRANSFERASE,ALT 16 U/L (12-78); ASPARTATE AMNIOTRANSFERASE,AST 22 U/L (15-37); BILIRUBIN TOTAL 0.5 mg/dL (0.2-1.0); BLOOD UREA NITROGEN,BUN 20 mg/dL (7-18); CARBON DIOXIDE,CO2 30 mmol/L (21-32); CHLORIDE,CL 102 mmol/L (100-108); CREATININE 1.8 mg/dL (0.8-1.3); EST CRCL DRUG DOSING (CG) 33.82 mL/min; ESTIMATED GFR 38 mL/min (>60); GLUCOSE RANDOM 150 mg/dL (74-106); POTASSIUM,K 4.0 mmol/L (3.6-5.2); PROTEIN TOTAL,TP 6.0 g/dL (6.4-8.2); SODIUM,NA 136 mmol/L (140-148)
[2024-11-07 12:33] LABS: EOSINOPHILS ABSOLUTE MAN 0.34 K/uL (0.00-0.40); EOSINOPHILS PERCENT MAN 8 % (2-4); LYMPHOCYTES ABSOLUTE MAN 0.95 K/uL (0.8-3.3); LYMPHOCYTES PERCENT MAN 22 % (24-44); METAMYELOCYTE ABSOLUTE MAN 0.04 K/uL; METAMYELOCYTE PERCENT MAN 1 %; MONOCYTES ABSOLUTE MAN 0.26 K/uL (0.20-0.90); MONOCYTES PERCENT MAN 6 % (2-6); NEUTROPHILS ABSOLUTE MAN 2.71 K/uL (1.0-7.6); SEG NEUTROPHILS PERCENT MAN 63 % (36-66)
[2024-11-07 13:13] LABS: TROPONIN I HIGH SENSITIVITY 24.6 pg/mL (<=60.3)
[2024-11-07] MEDS: Sodium Chloride 0.9% 10 ML Syringe FLUSH PRN (13:16)
[2024-11-07] MEDS: Iopamidol 612 MG/ML 100 ML Bottle IV PRN (13:16)
[2024-11-07 14:02] LABS: APPEARANCE,URINE CLEAR (CLEAR); GLUCOSE,URINE NEGATIVE (NEGATIVE); OCCULT BLOOD,URINE NEGATIVE (NEGATIVE)
[2024-11-07 14:31] LABS: SQUAMOUS EPITHELIAL CELLS,UR RARE /HPF; UROTHELIAL CELLS,URINE NOT SEEN /HPF
[2024-11-07] MEDS: Magnesium Sulfate 2 GM/50 mL 2 GM in Premix Bag 1 BAG IV SCH (15:06)
== END 2024-11-07 17:10 | disposition home or self-care (01) ==
LOC: JP.ED 10:35
DX: R40.4 Transient alteration of awareness (principal); I95.1 Orthostatic hypotension; E86.0 Dehydration; E88.09 Other disorders of plasma-protein metabolism, not elsewhere classified; E83.42 Hypomagnesemia; I10 Essential (primary) hypertension; K21.9 Gastro-esophageal reflux disease without esophagitis; E78.00 Pure hypercholesterolemia, unspecified; E66.9 Obesity, unspecified; Z88.8 Allergy status to other drugs, medicaments and biological substances; Z79.890 Hormone replacement therapy; Z79.899 Other long term (current) drug therapy; Z86.16 Personal history of COVID-19; Z90.49 Acquired absence of other specified parts of digestive tract; Z68.29 Body mass index [BMI] 29.0-29.9, adult
CPT/HCPCS: 36415; 70450; 71045; 71260; 80053; 80307; 81001; 83605; 83735; 84484; 85025; 85379; 93005; 93010; 96365; 96366; 99284; 99285; J3475; J7030; Q9967

== ENCOUNTER 2024-11-11 12:00 | Emergency (ER) | payer MEDICARE ==
[2024-11-11 12:29] LABS: BASOPHILS ABSOLUTE AUTO 0.06 K/uL (0.00-0.10); BASOPHILS PERCENT AUTO 1.1 % (0.1-1.3); EOSINOPHILS ABSOLUTE AUTO 0.43 K/uL (0.00-0.40); EOSINOPHILS PERCENT AUTO 8.0 % (0.0-5.4); IMMATURE GRAN PERCENT AUTO 0.2 % (0.0-0.7); LYMPHOCYTES ABSOLUTE AUTO 0.87 K/uL (0.8-3.3); LYMPHOCYTES PERCENT AUTO 16.1 % (11.4-47.7); MONOCYTES ABSOLUTE AUTO 0.75 K/uL (0.20-0.90); MONOCYTES PERCENT AUTO 13.9 % (3.3-12.6); NEUTROPHILS ABSOLUTE AUTO 3.28 K/uL (1.0-7.6); NEUTROPHILS PERCENT AUTO 60.7 % (40.0-78.1); PLATELET COUNT,PLT 185 K/uL (130-375); RED BLOOD CELL COUNT 3.42 M/uL (4.14-5.76); WHITE BLOOD CELL COUNT,WBC 5.4 K/uL (3.2-11.0)
[2024-11-11 12:44] LABS: IMMATURE GRAN ABSOLUTE AUTO 0.01 K/uL (0.00-0.23)
[2024-11-11 12:53] LABS: A/G RATIO 0.8 (1.2-2.2); ALANINE AMINOTRANSFERASE,ALT 29 U/L (12-78); ASPARTATE AMNIOTRANSFERASE,AST 37 U/L (15-37); BILIRUBIN TOTAL 0.4 mg/dL (0.2-1.0); BLOOD UREA NITROGEN,BUN 25 mg/dL (7-18); CARBON DIOXIDE,CO2 28 mmol/L (21-32); CHLORIDE,CL 102 mmol/L (100-108); CREATININE 1.9 mg/dL (0.8-1.3); EST CRCL DRUG DOSING (CG) 32.04 mL/min; ESTIMATED GFR 36 mL/min (>60); GLUCOSE RANDOM 109 mg/dL (74-106); POTASSIUM,K 4.0 mmol/L (3.6-5.2); PROTEIN TOTAL,TP 6.4 g/dL (6.4-8.2); SODIUM,NA 137 mmol/L (140-148)
[2024-11-11] MEDS: Lactated Ringers 1,000 ML IV SCH ×2 (13:07→14:16)
== END 2024-11-11 17:00 | disposition home or self-care (01) ==
LOC: JP.ED 12:00
DX: E86.0 Dehydration (principal); I25.10 Atherosclerotic heart disease of native coronary artery without angina pectoris; I48.91 Unspecified atrial fibrillation; I10 Essential (primary) hypertension; K21.9 Gastro-esophageal reflux disease without esophagitis; Z86.73 Personal history of transient ischemic attack (TIA), and cerebral infarction without residual deficits; Z86.16 Personal history of COVID-19; Z95.1 Presence of aortocoronary bypass graft; Z79.899 Other long term (current) drug therapy; Z79.01 Long term (current) use of anticoagulants; Z88.8 Allergy status to other drugs, medicaments and biological substances
CPT/HCPCS: 36415; 71045; 80053; 85025; 96360; 96361; 99285; J7120; 99283